=== PATIENT | male | born 1960 | race African-American/Black ===

== ENCOUNTER 2022-01-28 14:08 | Emergency (ER) | payer OTHER ==
[~2022-01-28] VITALS: Ht 172.7 cm; Wt 73.0 kg
[2022-01-28 14:11] VITALS: BP 182/83
== END 2022-01-28 16:49 | disposition home or self-care (01) ==
LOC: ER 14:08
DX: I73.9 Peripheral vascular disease, unspecified (principal)
CPT/HCPCS: 82962; 99283